=== PATIENT | female | born 1960 | race Two or more races ===

== ENCOUNTER 2021-05-20 14:33 | Inpatient (IN) | payer OTHER ==
[~2021-05-20] VITALS: Ht 175.3 cm; Wt 75.5 kg
[2021-05-20 15:48] LABS: Basophils # (auto) 0.2 10 ^3/uL (0-0.2); Eosinophils # (auto) 0 10 ^3/uL (0-0.8); Eosinophils % (auto) 0.3 % (0.0-7.0); Hematocrit 40.1 % (36.0-46.0); Hemoglobin 13.6 g/dL (12.2-16.2); Lymphocytes # (auto) 0.6 10 ^3/uL (0.4-5.4); Lymphocytes % (auto) 11.6 % (10.0-50.0); Mean Corpuscular Hemoglobin 30.6 pg (28.0-32.0); Mean Corpuscular Hgb Conc. 33.9 g/dL (32.0-36.0); Mean Corpuscular Volume 90.3 fL (80.0-100.0); Monocytes # (auto) 0.6 10 ^3/uL (0-1.3); Monocytes % (auto) 10.2 % (0.0-12.0); Neutrophils # (auto) 4.1 10 ^3/uL (1.6-8.6); Neutrophils % (auto) 74.9 % (37.0-80.0); Nucleated Red Blood Cells % 0.1 %; Red Blood Cells 4.45 10^6/uL (4.0-5.20); Red Cell Distribution Width 13.5 % (11.8-14.3); White Blood Cell 5.5 10^3/uL (4.4-10.8)
[2021-05-20 15:56] LABS: Albumin 2.9 g/dL (3.4-5.0); Calcium 8.7 mg/dL (8.5-10.1); Potassium 3.9 mmol/L (3.5-5.1)
[2021-05-20 16:03] LABS: BUN/Creatinine Ratio 33.3; Bilirubin, Total 0.3 mg/dL (0.2-1.0); Total Protein 7.8 g/dL (6.4-8.2)
[2021-05-20] MEDS ORDERED: cefTRIAXone 1GM/50ML D5W 50 ML IV ONE (16:30)
[2021-05-20] MEDS ORDERED: AZITHROMYCIN 500MG/ 250ML 250 ML IV ONE (16:30)
[2021-05-20] MEDS ORDERED: ZINC SULFATE 220mg CAP or TAB PO ONE (16:30)
[2021-05-20] MEDS ORDERED: DexAMETHasone SOD PHOS 10MG/1ML VIAL INJ IV ONE (16:30)
[2021-05-20] MEDS ORDERED: MORPHINE SULFATE INJECTION 2 MG/ML SYRG IV PRN ×3 (17:00→18:45)
[2021-05-20] MEDS ORDERED: NITROGLYCERIN 0.4 MG SL TAB SL PRN ×2 (17:00→18:45)
[2021-05-20] MEDS ORDERED: HYDROcodone-ACET 5/325MG TAB PO PRN (18:45)
[2021-05-20] MEDS ORDERED: LORazepam 0.5 MG TAB PO PRN (18:45)
[2021-05-20] MEDS ORDERED: ACETAMINOPHEN 500 MG TAB PO PRN (18:45)
[2021-05-20] MEDS ORDERED: ONDANSETRON HCL 4 MG/2 ML VIAL IV PRN (18:45)
[2021-05-20] MEDS ORDERED: FAMOTIDINE (10MG/ML) 2ML VL IV ONE (18:45)
[2021-05-20] MEDS ORDERED: DOCUSATE SOD 100 MG CAP PO PRN (18:45)
[2021-05-20] MEDS ORDERED: PROMETHAZINE-DM 5 ML ORAL SYRUP PO ONE (18:45)
[2021-05-20 20:10] VITALS: BP 104/68
[2021-05-20] MEDS: ALUM & MAG HYDROX-SIMETH LIQ(MAALOX) 30 ML PO PRN (20:11)
[2021-05-20 20:24] LABS: Thyroid Stimulating Hormone 3.49 uIU/mL (0.358-3.74)
[2021-05-20] MEDS: ATORVASTATIN 20 MG TAB PO SCH (20:54)
[2021-05-20] MEDS: ENOXAPARIN SOD 40 MG/0.4 ML SYRINGE SC SCH (20:54)
[2021-05-20 20:55] LABS: Cholesterol 162 mg/dL (< 200); HDL Cholesterol 30 mg/dL (40-59); LDL Cholesterol 110 mg/dL (< 100); Triglycerides 191 mg/dL (< 150)
[2021-05-20] MEDS: BUDESONIDE (INHALATION) 180 MCG IH IN SCH (21:21)
[2021-05-20] MEDS: ALBUTEROL SULF HFA 90MCG INH 200DOSE IN PRN (21:22)
[2021-05-20] MEDS: DOXYCYCLINE 100MG/250ML 250 ML IV SCH (22:00)
[2021-05-20 22:32] LABS: Basophils # (auto) 0 10 ^3/uL (0-0.2); Basophils % (auto) 0.4 % (0.0-2.0); Eosinophils # (auto) 0 10 ^3/uL (0-0.8); Eosinophils % (auto) 0.1 % (0.0-7.0); Lymphocytes # (auto) 0.8 10 ^3/uL (0.4-5.4); Lymphocytes % (auto) 12.2 % (10.0-50.0); Mean Corpuscular Hgb Conc. 33.2 g/dL (32.0-36.0); Mean Corpuscular Volume 90.4 fL (80.0-100.0); Monocytes # (auto) 0.4 10 ^3/uL (0-1.3); Monocytes % (auto) 5.7 % (0.0-12.0); Neutrophils # (auto) 5.4 10 ^3/uL (1.6-8.6); Neutrophils % (auto) 81.6 % (37.0-80.0); Nucleated Red Blood Cells % 0.2 %; Red Blood Cells 4.31 10^6/uL (4.0-5.20); Red Cell Distribution Width 13.5 % (11.8-14.3); White Blood Cell 6.6 10^3/uL (4.4-10.8)
[2021-05-20 22:42] VITALS: BP 104/68
[2021-05-20 22:48] LABS: Potassium 3.7 mmol/L (3.5-5.1)
[2021-05-20 23:01] LABS: Albumin 2.7 g/dL (3.4-5.0); BUN/Creatinine Ratio 40.4; Bilirubin, Total 0.3 mg/dL (0.2-1.0); CRP High Sensitivity 8.68 mg/dL (< 0.3); Calcium 8.5 mg/dL (8.5-10.1); Total Protein 7.4 g/dL (6.4-8.2)
[2021-05-20] MEDS ORDERED: THYR60TA PO (23:58)
[2021-05-21] VITALS (7 sets, daily range): BP systolic 93–108; BP diastolic 60–71
[2021-05-21] MEDS ORDERED: PROMETHAZINE-DM 5 ML ORAL SYRUP PO PRN
[2021-05-21] MEDS ORDERED: FUROSEMIDE 20 MG/2 ML VIAL IV SCH (06:00)
[2021-05-21] MEDS: THYROID 60 MG TAB PO SCH (06:45)
[2021-05-21 06:56] LABS: Basophils # (auto) 0 10 ^3/uL (0-0.2); Basophils % (auto) 0.3 % (0.0-2.0); Eosinophils # (auto) 0 10 ^3/uL (0-0.8); Hematocrit 38.8 % (36.0-46.0); Lymphocytes # (auto) 0.6 10 ^3/uL (0.4-5.4); Lymphocytes % (auto) 15.6 % (10.0-50.0); Mean Corpuscular Hemoglobin 30.2 pg (28.0-32.0); Mean Corpuscular Hgb Conc. 33.4 g/dL (32.0-36.0); Mean Corpuscular Volume 90.5 fL (80.0-100.0); Monocytes # (auto) 0.5 10 ^3/uL (0-1.3); Monocytes % (auto) 11.1 % (0.0-12.0); Nucleated Red Blood Cells % 0.3 %; Red Blood Cells 4.29 10^6/uL (4.0-5.20); Red Cell Distribution Width 13.4 % (11.8-14.3); White Blood Cell 4.1 10^3/uL (4.4-10.8)
[2021-05-21 07:08] LABS: INR 1.05 (0.9-1.15); Partial Thromboplastin Time 26.8 sec (23.6-33.0)
[2021-05-21 07:14] LABS: Albumin 2.6 g/dL (3.4-5.0); Calcium 8.7 mg/dL (8.5-10.1); Magnesium 2.6 mg/dL (1.6-2.6); Potassium 4.3 mmol/L (3.5-5.1)
[2021-05-21 07:20] LABS: BUN/Creatinine Ratio 34.4; Bilirubin, Total 0.3 mg/dL (0.2-1.0); Total Protein 7.3 g/dL (6.4-8.2); Uric Acid 5.1 mg/dL (2.6-6.0)
[2021-05-21] MEDS: ALBUTEROL SULF HFA 90MCG INH 200DOSE IN PRN ×2 (07:47→09:52)
[2021-05-21] MEDS: BUDESONIDE (INHALATION) 180 MCG IH IN SCH ×2 (07:48→09:52)
[2021-05-21] MEDS: DOXYCYCLINE 100MG/250ML 250 ML IV SCH ×2 (08:35→21:28)
[2021-05-21] MEDS: POTASSIUM CHL 20 Meq TABLET PO SCH ×2 (08:47→21:27)
[2021-05-21] MEDS: FAMOTIDINE (10MG/ML) 2ML VL IV SCH ×2 (08:47→21:27)
[2021-05-21] MEDS: ASCORBIC ACID 1,000 MG TAB PO SCH (08:47)
[2021-05-21] MEDS: ZINC SULFATE 220mg CAP or TAB PO SCH (08:47)
[2021-05-21] MEDS: DexAMETHasone SOD PHOS 10MG/1ML VIAL INJ IV SCH (08:47)
[2021-05-21] MEDS: ASPirin 81 mg TAB PO SCH (08:47)
[2021-05-21] MEDS: CHOLECALCIFEROL (VITD3) 2,000 UNIT CAP/TAB PO SCH (08:48)
[2021-05-21] MEDS: IVERMECTIN 3 MG TAB PO SCH (08:48)
[2021-05-21] MEDS: ENOXAPARIN SOD 40 MG/0.4 ML SYRINGE SC SCH ×2 (08:48→21:26)
[2021-05-21] MEDS: ATORVASTATIN 20 MG TAB PO SCH (21:26)
[2021-05-22] MEDS: ALUM & MAG HYDROX-SIMETH LIQ(MAALOX) 30 ML PO PRN (00:03)
[2021-05-22 05:00] VITALS: BP 102/77
[2021-05-22] MEDS: THYROID 60 MG TAB PO SCH (06:42)
[2021-05-22] MEDS: DOXYCYCLINE 100MG/250ML 250 ML IV SCH ×2 (08:55→21:40)
[2021-05-22] MEDS: DexAMETHasone SOD PHOS 10MG/1ML VIAL INJ IV SCH (08:55)
[2021-05-22] MEDS: FAMOTIDINE (10MG/ML) 2ML VL IV SCH ×2 (08:55→21:40)
[2021-05-22] MEDS: IVERMECTIN 3 MG TAB PO SCH (08:58)
[2021-05-22] MEDS: ENOXAPARIN SOD 40 MG/0.4 ML SYRINGE SC SCH ×2 (08:58→21:40)
[2021-05-22] MEDS: CHOLECALCIFEROL (VITD3) 2,000 UNIT CAP/TAB PO SCH (08:58)
[2021-05-22] MEDS: ZINC SULFATE 220mg CAP or TAB PO SCH (08:58)
[2021-05-22] MEDS: POTASSIUM CHL 20 Meq TABLET PO SCH ×2 (08:59→21:40)
[2021-05-22] MEDS: ASCORBIC ACID 1,000 MG TAB PO SCH (08:59)
[2021-05-22] MEDS: ASPirin 81 mg TAB PO SCH (08:59)
[2021-05-22 09:00] VITALS: BP 97/63
[2021-05-22] MEDS: FUROSEMIDE 20 MG/2 ML VIAL IV SCH (09:18)
[2021-05-22] MEDS: BUDESONIDE (INHALATION) 180 MCG IH IN SCH ×2 (11:02→22:54)
[2021-05-22] MEDS: ALBUTEROL SULF HFA 90MCG INH 200DOSE IN PRN ×2 (11:02→22:54)
[2021-05-22 12:16] LABS: Urine Bacteria NONE SEEN /hpf (None Seen); Urine Blood Negative /uL (Negative); Urine Specific Gravity 1.004 (1.001-1.035); Urine WBC 1 /hpf (0 - 5)
[2021-05-22 12:25] LABS: Alcohol, Urine < 3.0 mg/dL (0-10); Amphetamine Screen, Urine NEGATIVE (NEGATIVE); Benzodiazephine Screen, Urine NEGATIVE (NEGATIVE); Cannabinoid Screen, Urine NEGATIVE (NEGATIVE); Cocaine Screen, Urine NEGATIVE (NEGATIVE); Opiate Scree,Urine NEGATIVE (NEGATIVE); Phencyclidine Screen, Urine NEGATIVE (NEGATIVE)
[2021-05-22 12:27] LABS: Barbiturate Scree,Urine NEGATIVE (NEGATIVE)
[2021-05-22 13:00] VITALS: BP 115/76
[2021-05-22 17:00] VITALS: BP 107/67
[2021-05-22] MEDS: ATORVASTATIN 20 MG TAB PO SCH (21:40)
[2021-05-22 22:00] VITALS: BP 100/62
[2021-05-23 05:00] VITALS: BP 107/70
[2021-05-23] MEDS: THYROID 60 MG TAB PO SCH (06:25)
[2021-05-23] MEDS: BUDESONIDE (INHALATION) 180 MCG IH IN SCH ×2 (07:24→23:35)
[2021-05-23] MEDS: ALBUTEROL SULF HFA 90MCG INH 200DOSE IN PRN (07:24)
[2021-05-23] MEDS: FUROSEMIDE 20 MG/2 ML VIAL IV SCH (08:49)
[2021-05-23] MEDS: FAMOTIDINE (10MG/ML) 2ML VL IV SCH (08:49)
[2021-05-23] MEDS: DexAMETHasone SOD PHOS 10MG/1ML VIAL INJ IV SCH (08:49)
[2021-05-23] MEDS: DOXYCYCLINE 100MG/250ML 250 ML IV SCH ×2 (08:50→20:37)
[2021-05-23] MEDS: ZINC SULFATE 220mg CAP or TAB PO SCH (08:50)
[2021-05-23] MEDS: IVERMECTIN 3 MG TAB PO SCH (08:50)
[2021-05-23] MEDS: ASCORBIC ACID 1,000 MG TAB PO SCH (08:50)
[2021-05-23] MEDS: CHOLECALCIFEROL (VITD3) 2,000 UNIT CAP/TAB PO SCH (08:50)
[2021-05-23] MEDS: ASPirin 81 mg TAB PO SCH (08:50)
[2021-05-23] MEDS: POTASSIUM CHL 20 Meq TABLET PO SCH ×2 (08:50→20:37)
[2021-05-23] MEDS: ENOXAPARIN SOD 40 MG/0.4 ML SYRINGE SC SCH ×2 (08:51→20:37)
[2021-05-23 09:00] VITALS: BP 99/67
[2021-05-23 13:00] VITALS: BP 100/73
[2021-05-23] MEDS ORDERED: DEX4T PO (17:58)
[2021-05-23] MEDS ORDERED: AMOX500T86 PO (17:58)
[2021-05-23] MEDS ORDERED: FAMO20TA10 PO (17:58)
[2021-05-23] MEDS ORDERED: BUDE20SU (17:58)
[2021-05-23] MEDS: ATORVASTATIN 20 MG TAB PO SCH (20:37)
[2021-05-23 22:00] VITALS: BP 111/69
[2021-05-24 01:31] VITALS: BP 111/69
[2021-05-24 05:00] VITALS: BP 95/66
[2021-05-24] MEDS: THYROID 60 MG TAB PO SCH (06:16)
[2021-05-24 06:47] LABS: Potassium 4.9 mmol/L (3.5-5.1)
[2021-05-24 06:48] LABS: Hematocrit 40.6 % (36.0-46.0); Hemoglobin 13.2 g/dL (12.2-16.2); Mean Corpuscular Hemoglobin 29.8 pg (28.0-32.0); Mean Corpuscular Hgb Conc. 32.6 g/dL (32.0-36.0); Mean Corpuscular Volume 91.3 fL (80.0-100.0); Red Blood Cells 4.45 10^6/uL (4.0-5.20); Red Cell Distribution Width 13.7 % (11.8-14.3); White Blood Cell 13.8 10^3/uL (4.4-10.8)
[2021-05-24 06:54] LABS: BUN/Creatinine Ratio 33.3; Bilirubin, Total 0.4 mg/dL (0.2-1.0); Total Protein 6.6 g/dL (6.4-8.2)
[2021-05-24 06:55] LABS: Basophils % (manual) 0 (0.0-2.0); Blast Cells 0; Eosinophils % (manual) 0 (0-7); Metamyelocytes % 0; Myelocytes % 0; Promyelocytes % 0; Reactive Lymphocytes 0
[2021-05-24 07:24] LABS: Band Neutrophils % (manual) 4; Lymphocytes % (manual) 17 (10.0-50.0); Monocytes % (manual) 4 (0-12)
[2021-05-24 08:46] VITALS: BP 100/69
[2021-05-24] MEDS: DOXYCYCLINE 100MG/250ML 250 ML IV SCH (08:48)
[2021-05-24] MEDS: ZINC SULFATE 220mg CAP or TAB PO SCH (08:48)
[2021-05-24] MEDS: ASPirin 81 mg TAB PO SCH (08:48)
[2021-05-24] MEDS: DexAMETHasone SOD PHOS 10MG/1ML VIAL INJ IV SCH (08:48)
[2021-05-24] MEDS: ASCORBIC ACID 1,000 MG TAB PO SCH (08:49)
[2021-05-24] MEDS: ENOXAPARIN SOD 40 MG/0.4 ML SYRINGE SC SCH (08:49)
[2021-05-24] MEDS: POTASSIUM CHL 20 Meq TABLET PO SCH (08:49)
[2021-05-24] MEDS: CHOLECALCIFEROL (VITD3) 2,000 UNIT CAP/TAB PO SCH (08:49)
[2021-05-24] MEDS: IVERMECTIN 3 MG TAB PO SCH (08:49)
[2021-05-24 12:37] VITALS: BP 107/66
[2021-05-24] MEDS: BUDESONIDE (INHALATION) 180 MCG IH IN SCH (15:29)
[2021-05-24] MEDS: ALBUTEROL SULF HFA 90MCG INH 200DOSE IN PRN (15:29)
[2021-05-24 16:45] VITALS: BP 107/71
== END 2021-05-24 16:48 | disposition home or self-care (01) | DRG 177 ==
LOC: ER 14:33 → TELE 16:58 → TELE-EAST 19:38
PROVIDERS: ADMIT Hospitalist; ATTEND Hospitalist
DX: U07.1 COVID-19 (principal); J12.82 Pneumonia due to coronavirus disease 2019; E44.0 Moderate protein-calorie malnutrition; D89.839 Cytokine release syndrome, grade unspecified; E03.9 Hypothyroidism, unspecified; Z68.35 Body mass index [BMI] 35.0-35.9, adult; Z88.8 Allergy status to other drugs, medicaments and biological substances; R06.03 Acute respiratory distress; E88.09 Other disorders of plasma-protein metabolism, not elsewhere classified
CPT/HCPCS: 36415; 36600; 71045; 80053; 80061; 80307; 81001; 82306; 82728; 82805; 83036; 83605; 83615; 83735; 83880; 84100; 84443; 84484; 84550; 85007; 85025; 85027; 85379; 85610; 85730; 86141; 87040; 87086; 87426; 93005; 94640; 96365; 96367; 96375; 99291; G0378; J0696; J1100; J3490

== ENCOUNTER 2024-02-14 11:35 | Inpatient (IN) | payer OTHER ==
[~2024-02-14] VITALS: Ht 175.3 cm; Wt 87.5 kg
[~2024-02-14 11:35] MED LIST: AMOX500T86 PO; BUDE20SU; DEX4T PO; FAMO20TA10 PO; THYR60TA PO
[2024-02-14 15:09] LABS: Basophils # (auto) 0.1 10 ^3/uL (0-0.2); Basophils % (auto) 1.1 % (0.0-2.0); Eosinophils # (auto) 0.2 10 ^3/uL (0-0.8); Eosinophils % (auto) 1.9 % (0.0-7.0); Hemoglobin 14.2 g/dL (12.2-16.2); Lymphocytes # (auto) 2.4 10 ^3/uL (0.4-5.4); Lymphocytes % (auto) 27.1 % (10.0-50.0); Mean Corpuscular Hemoglobin 29.6 pg (28.0-32.0); Mean Corpuscular Hgb Conc. 33.7 g/dL (32.0-36.0); Mean Corpuscular Volume 87.7 fL (80.0-100.0); Monocytes # (auto) 0.6 10 ^3/uL (0-1.3); Monocytes % (auto) 6.2 % (0.0-12.0); Neutrophils # (auto) 5.7 10 ^3/uL (1.6-8.6); Neutrophils % (auto) 63.7 % (37.0-80.0); Nucleated Red Blood Cells % 0.1 %; Platelet Count (auto) 311 10^3/uL (140-450); Red Blood Cells 4.79 10^6/uL (4.0-5.20); Red Cell Distribution Width 13.1 % (11.8-14.3)
[2024-02-14 15:24] LABS: Alanine Aminotransferase 13 U/L (7-40); Albumin 4.6 g/dL (3.2-4.8); Alkaline Phosphatase 87 U/L (46-116); Anion Gap 5 (5-15); Aspartate Aminotransferase 14 U/L (13-40); BUN/Creatinine Ratio 20.3 (10.0-20.0); Blood Urea Nitrogen 16 mg/dL (9-23); Calcium 10.4 mg/dL (8.7-10.4); Carbon Dioxide 29 mmol/L (20-30); Chloride 109 mmol/L (98-107); Glucose 102 mg/dL (74-106); Sodium 143 mmol/L (136-145)
[2024-02-14 15:25] LABS: Bilirubin, Total 0.2 mg/dL (0.2-1.0)
[2024-02-14] MEDS: MECLIZINE HCL 25 MG TAB PO ONE (17:00)
[2024-02-14 17:21] LABS: Urine Bacteria None Seen /hpf (None Seen)
[2024-02-14 17:32] LABS: Urine Blood Negative /uL (Negative); Urine Budding Yeast OCCASIONAL /hpf (None Seen); Urine Clarity Clear (Clear); Urine Color Light-Yellow (Yellow); Urine Protein, UAD Negative (Negative); Urine Specific Gravity 1.014 (1.001-1.035); Urine Urobilinogen Normal (Negative); Urine WBC 3 /hpf (0 - 5); Urine pH 6.5 (5.0-9.0)
[2024-02-14] MEDS: IOHEXOL 350 MG/ML 100ML IJ ONE (20:55)
[2024-02-14 22:00] VITALS: PULSE 51; RESP 20; O2SAT 100
[2024-02-15] VITALS (8 sets, daily range): BP systolic 83–116; BP diastolic 46–77; PULSE 60–86; RESP 17–20; TEMP 97.7–98.7; O2SAT 93–98
[2024-02-15] MEDS: IBUPROFEN 400 MG TAB PO PRN (18:28)
[2024-02-15] MEDS ORDERED: ACETAMINOPHEN 325 MG TAB PO PRN (18:30)
[2024-02-16] VITALS (12 sets, daily range): BP systolic 98–125; BP diastolic 62–85; PULSE 74–126; RESP 12–18; TEMP 97.7–98.1; O2SAT 93–98
[2024-02-16 06:45] LABS: INR 1.02 (0.9-1.15); Prothrombin Time 10.8 sec (9.3-11.8)
[2024-02-16] MEDS: THYROID 60 MG TAB PO SCH (08:25)
[2024-02-16] MEDS: LIDOCAINE 2%HCL (LOCAL ANESTH.) INJ 20ML MDV ONE (16:47)
[2024-02-16] MEDS: fentaNYL CITRATE 100 MCG/2 ML VL ONE (17:23)
[2024-02-16 18:29] LABS: Protein, CSF 28.9 mg/dL (15-45)
[2024-02-16 19:23] LABS: CSF White Blood Cells 2 CUMM (0-5)
[2024-02-17 01:00] VITALS: BP 89/58; PULSE 78; RESP 18; TEMP 98.2; O2SAT 94
[2024-02-17 05:00] VITALS: BP 98/64; PULSE 80; RESP 15; TEMP 97.8; O2SAT 96
[2024-02-17 08:00] VITALS: PULSE 84
[2024-02-17 08:54] VITALS: BP 105/49; PULSE 78; RESP 18; TEMP 98.4; O2SAT 98
[2024-02-17] MEDS ORDERED: TOPI25TA43 PO (11:43)
[2024-02-17 13:00] VITALS: BP 116/76; PULSE 83; RESP 18; TEMP 98.3; O2SAT 95
[2024-02-20 08:06] LABS: Immunoglobulin G, Serum 857 mg/dL (586-1602)
[2024-02-20 09:07] LABS: RPR Non Reactive (Non Reactive); Serum Albumin 4.2 g/dL (3.9-4.9)
[2024-02-20 11:07] LABS: Albumin, CSF 15 mg/dL (8-37); IgG, Quant, CSF 1.7 mg/dL (0.0-6.7); IgG, Syn Rate,CSF -1.7 mg/day (-9.9 TO +3.3)
== END 2024-02-17 16:16 | disposition home health service (06) | DRG 103 ==
LOC: ER 11:35 → TELE 23:35 → TELE-CENTR 02-15 03:41
PROVIDERS: ADMIT Internal Medicine; ATTEND Internal Medicine
PROC: 4A00X4Z Measurement of Central Nervous Electrical Activity, External Approach (ICD-10-PCS; principal; 2024-02-16)
DX: G43.901 Migraine, unspecified, not intractable, with status migrainosus (principal); R53.81 Other malaise; R29.6 Repeated falls; R26.81 Unsteadiness on feet; R29.810 Facial weakness; K21.9 Gastro-esophageal reflux disease without esophagitis; E03.9 Hypothyroidism, unspecified; Z86.19 Personal history of other infectious and parasitic diseases; Z79.899 Other long term (current) drug therapy; Z88.8 Allergy status to other drugs, medicaments and biological substances
CPT/HCPCS: 36415; 70450; 70496; 70551; 71045; 80053; 81001; 82042; 82784; 82945; 83605; 83735; 84157; 84484; 85025; 85610; 86592; 87070; 87205; 89051; 93005; 93306; 95819; 97110; 97116; 97163; 97530; 99152; G0378